=== PATIENT | male | born 1950 | race Asian ===

== ENCOUNTER 2025-06-26 15:37 | Emergency (ER) | payer OTHER ==
[~2025-06-26] VITALS: Ht 165.1 cm; Wt 63.0 kg
[2025-06-26 15:47] VITALS: TEMP 98.5
[2025-06-26] MEDS ORDERED: ATOR10TA69 PO (19:26)
[2025-06-26] MEDS ORDERED: IBUP600 PO (19:26)
[2025-06-26] MEDS: HYDROCODONE/ACETAMINOPHEN 5-325 MG TABLET PO ONE (19:40)
[2025-06-26] MEDS ORDERED: NAPR-1196 PO (19:48)
[2025-06-26] MEDS ORDERED: HYDR-4062 PO (19:56)
[2025-06-26 20:41] VITALS: BP 123/84; PULSE 67; RESP 16; O2SAT 98
== END 2025-06-26 20:43 | disposition home or self-care (01) ==
LOC: EMS 15:37
DX: S82.892A Other fracture of left lower leg, initial encounter for closed fracture (principal); M25.552 Pain in left hip; E78.00 Pure hypercholesterolemia, unspecified; M25.572 Pain in left ankle and joints of left foot; W11.XXXA Fall on and from ladder, initial encounter; Y93.89 Activity, other specified; Y92.89 Other specified places as the place of occurrence of the external cause; Y99.8 Other external cause status
CPT/HCPCS: 29515; 73503; 99284